=== PATIENT | female | born 1990 | race Caucasian/White ===

== ENCOUNTER 2018-02-19 06:45 | Day surgery (SDC) | payer BC ==
[~2018-02-19 06:45] MED LIST: Lactated Ringers 1,000 ML IV SCH; Sodium Chloride 0.9% 10 ML Syringe FLUSH PRN; Sodium Chloride 0.9% 2.5 ML Syringe FLUSH PRN
[2018-02-19] MEDS ORDERED: fentaNYL 100 MCG/2 ML SDV ONE (07:07)
[2018-02-19] MEDS ORDERED: Ketorolac 30 MG/ML SDV ONE (07:07)
[2018-02-19] MEDS ORDERED: Lidocaine 2% 5 ML SDV ONE (07:07)
[2018-02-19] MEDS ORDERED: Midazolam 1 MG/ML 2 ML SDV ONE (07:07)
[2018-02-19] MEDS ORDERED: Ondansetron 4 MG/2 ML SDV ONE (07:07)
[2018-02-19] MEDS ORDERED: Propofol 200 MG/20 ML SDV ONE (07:07)
[2018-02-19] MEDS ORDERED: Lidocaine 1% with EPINEPHrine 1:100,000 20 ML MDV ONE (07:26)
--- NOTE | 2018-02-19 07:31 | PCM.PREANE ---
Preanesthetic Assessment - Anesthesia/Transfusion/Family Hx Anesthesia History: Prior Anesthesia Without Reaction Family History of Anesthesia Reaction: No Transfusion History: No Prior Transfusion(s) Intubation History: Unknown - Review of Systems General: No Symptoms Pulmonary: No Symptoms Cardiovascular: No Symptoms Gastrointestinal: No Symptoms Neurological: No Symptoms Other: Reports: None - Physical Assessment NPO Status Date: 02/18/18 NPO Status Time: 21:00 O2 Sat by Pulse Oximetry: 97 Respiratory Rate: 16 Vital Signs: Last Vital Signs Temp 97.5 F 02/19/18 07:00 Pulse 72 02/19/18 07:00 Resp 16 02/19/18 07:00 BP 128/73 02/19/18 07:00 Pulse Ox 97 02/19/18 07:00 Height: 5 ft 2.5 in Weight: 162 lb ASA Class: 1 Mental Status: Alert & Oriented x3 Airway Class: Mallampati = 2 Dentition: Reports: Normal Dentition Thyro-Mental Finger Breadths: 3 Mouth Opening Finger Breadths: 3 ROM/Head Extension: Full Lungs: Clear to Auscultation, Normal Respiratory Effort Cardiovascular: Regular Rate, Regular Rhythm - Lab Values: Laboratory Last Values WBC 11.65 K/uL (4.0-11.0) H 02/19/18 07:10 RBC 4.48 M/uL (4.30-5.90) 02/19/18 07:10 Hgb 14.1 g/dL (12.0-16.0) 02/19/18 07:10 Hct 40.2 % (36.0-46.0) 02/19/18 07:10 MCV 89.7 fL (80.0-98.0) 02/19/18 07:10 MCH 31.5 pg (27.0-32.0) 02/19/18 07:10 MCHC 35.1 g/dL (31.0-37.0) 02/19/18 07:10 RDW Std Deviation 42.2 fl (28.0-62.0) 02/19/18 07:10 RDW Coeff of Abdelrahman 13 % (11.0-15.0) 02/19/18 07:10 Plt Count 296 K/uL (150-400) 02/19/18 07:10 MPV 9.70 fL (7.40-12.00) 02/19/18 07:10 Nucleated RBC % 0.0 /100WBC 02/19/18 07:10 Nucleated RBCs # 0 K/uL 02/19/18 07:10 - Allergies Allergies/Adverse Reactions: Allergies Allergy/AdvReac Type Severity Reaction Status Date / Time No Known Allergies Allergy Verified 02/13/18 13:46 - Blood Blood Available: No Product(s) Available: None - Anesthesia Plan Free Text/Narrative:: MAC - Acknowledgements Anesthesia Type Planned: MAC Pt an Appropriate Candidate for the Planned Anesthesia: Yes Alternatives and Risks of Anesthesia Discussed w Pt/Guardian: Yes Pt/Guardian Understands and Agrees with Anesthesia Plan: Yes PreAnesthesia Questionnaire HEENT History: Reports: None Gastrointestinal History: Reports: Other (See Below) Other Gastrointestinal History: occasional heartburn, treats with tums - no problems this AM Genitourinary History: Reports: None 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 , 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 - Infectious Disease History 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) - Past Surgical History Head Surgeries/Procedures: Reports: None HEENT Surgical History: Reports: Oral Surgery, Tonsillectomy Other HEENT Surgeries/Procedures: wisdom teeth extraction, dental implant Female Surgical History: Reports: D&C Other Female Surgeries/Procedures: laparoscopy with left salpingectomy for ectopic , D&C for missed AB - SUBSTANCE USE Smoking Status *Q: Former Smoker Tobacco Use Within Last Twelve Months: Cigarettes Recreational Drug Use History: No - HOME MEDS Home Medications: Home Meds Folic Acid 0.8 mg PO DAILY 02/13/18 [History] L.acidoph,Paracasei, B.lactis [Probiotic] 1 tab PO DAILY 02/13/18 [History] valACYclovir HCl [Valtrex] 500 mg PO DAILY 02/13/18 [History] - CURRENT (IN HOUSE) MEDS Current Meds: Current Medications Lactated Ringer's (Ringers, Lactated) 1,000 mls @ 125 mls/hr IV ASDIRECTED NANCY Last Admin: 02/19/18 07:10 Dose: 125 mls/hr Sodium Chloride (Saline Flush) 10 ml FLUSH ASDIRECTED PRN PRN Reason: Keep Vein Open Sodium Chloride (Saline Flush) 2.5 ml FLUSH ASDIRECTED PRN PRN Reason: Keep Vein Open Discontinued Medications Fentanyl (Sublimaze) Confirm Administered Dose 100 mcg .ROUTE .STK-MED ONE Stop: 02/19/18 07:08 Ketorolac Tromethamine (Toradol) Confirm Administered Dose 30 mg .ROUTE .STK- MED ONE Stop: 02/19/18 07:08 Lidocaine (Xylocaine-Mpf 2%) Confirm Administered Dose 5 ml .ROUTE .STK-MED ONE Stop: 02/19/18 07:08 Midazolam HCl (Versed 1 Mg/Ml) Confirm Administered Dose 2 mg .ROUTE .STK-MED ONE Stop: 02/19/18 07:08 Ondansetron HCl (Zofran) Confirm Administered Dose 4 mg .ROUTE .STK-MED ONE Stop: 02/19/18 07:08 Propofol (Diprivan 20 Ml) Confirm Administered Dose 400 mg .ROUTE .STK-MED ONE Stop: 02/19/18 07:08
[2018-02-19] MEDS ORDERED: fentaNYL 100 MCG/2 ML SDV IVPUSH PRN (07:36)
--- NOTE | 2018-02-19 07:44 | PCM.SN ---
- Free Text/Narrative Note: reviewed, pt examined and interviewed. agree with anesthetic plan
--- NOTE | 2018-02-19 08:25 | PCM.OPNOTE ---
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
--- NOTE | 2018-02-19 08:35 | PCM.POSTAN ---
POST ANESTHESIA ASSESSMENT - MENTAL STATUS Mental Status: Alert, Oriented - RESPIRATORY Respiratory Status: Respiratory Rate WNL, Airway Patent, O2 Saturation Stable - CARDIOVASCULAR CV Status: Pulse Rate WNL, Blood Pressure Stable - GASTROINTESTINAL GI Status: No Symptoms - POST OP HYDRATION Hydration Status: Adequate & Stable
--- NOTE | 2018-02-19 08:35 | PCM48HPAN ---
Post Anesthesia Note - EVALUATION WITHIN 48HRS OF ANESTHETIC Vital Signs in Normal Range: Yes Patient Participated in Evaluation: Yes Respiratory Function Stable: Yes Airway Patent: Yes Cardiovascular Function Stable: Yes Hydration Status Stable: Yes Pain Control Satisfactory: Yes Nausea and Vomiting Control Satisfactory: Yes Mental Status Recovered: Yes Resp Rate: 16
--- NOTE | 2018-02-19 09:24 | OR ---
SURGEON: Dee Dee Parra M.D. DATE OF PROCEDURE: 02/19/2018 PREOPERATIVE DIAGNOSIS: Cervical intraepithelial neoplasia 2. POSTOPERATIVE DIAGNOSIS: Cervical intraepithelial neoplasia 2. PROCEDURE: Loop electrosurgical excision procedure of the cervix. ANESTHESIA: Moderate sedation and local. ESTIMATED BLOOD LOSS: Less than 10 mL. FLUIDS: 700 mL crystalloid. COMPLICATIONS: None known. FINDINGS: HAIDER 2 or moderate dysplasia of the cervix. DISPOSITION: The patient to PACU, stable. SPECIMENS: Pathology. PROCEDURE DETAILS: Radha is a 27-year-old, nulligravida patient, who has HAIDER 2 on biopsy of the cervix and endocervix. After thoughtful discussion with her, she has opted to proceed with treatment now and will prolong the conception of for at least the next 6 months. Risks of the procedure have been discussed. Proper consent is obtained. The patient was taken to the examining room where she underwent moderate sedation, was placed in modified dorsal lithotomy position and was prepped and draped in the usual manner. A time-out was performed. Coated speculum was introduced in the vagina followed by sidewall retractors. Lugol's solution was gently placed. The cervix was now prepped with 1% lidocaine with epinephrine, 5 o'clock, 7 o'clock, 12 o'clock, 3 and 9 o'clock positions. Please see nurse's notes for total amount dispensed during the procedure. As the patient has a nulliparous cervix, able to utilize a 20 x 8 mm loop and did a single pass shallow loop. Beginning at the 9 o'clock position, I was able to excise the cervix from the 9 o'clock to the 3 o'clock position. Specimen was marked at 12 o'clock position, to be sent to pathology for analysis. A 5 mm endocervical hat was now performed followed by endocervical curettings. The endocervical canal was gently dilated to help prevent again stenosis. Base of the wound bed was cauterized followed by Monsel's placement. Hemostasis was evident. The patient has tolerated the procedure well. All instruments were removed from the vagina. Instrument, needle counts correct x2. The patient will go to PACU in stable condition. Specimens to pathology. JOEL / HANDY /[id number]
== END 2018-02-19 09:15 | disposition home or self-care (01) ==
LOC: MW.SDS 06:45
PROVIDERS: ATTEND Obstetrics & Gynecology
DX: N87.1 Moderate cervical dysplasia (principal); Z79.899 Other long term (current) drug therapy; Z87.891 Personal history of nicotine dependence
CPT/HCPCS: 36415; 57522; 84703; 85027; J1885; J2250; J2405; J3010; J7120; 88305; 88307; J2704

== ENCOUNTER 2018-05-13 21:55 | Emergency (ER) | payer BC ==
--- NOTE | 2018-05-13 22:20 | EDM.PDOC ---
ED HPI GENERAL MEDICAL PROBLEM - General Chief Complaint: Lower Extremity Injury/Pain Stated Complaint: PAIN IN THE LF HEEL Time Seen by Provider: 05/13/18 21:59 Source of Information: Reports: Patient History Limitations: Reports: No Limitations - History of Present Illness INITIAL COMMENTS - FREE TEXT/NARRATIVE: HISTORY AND PHYSICAL: History of present illness: 28-year-old female presenting emergency department with chief complaint of left heel pain after stepping on a splinter Sunday. Patient states that she had a wood/deck splinter into her left heel approximately 3 days ago. She has had increasing pain and tenderness in that general region. He showed me a picture of the splinter and is approximately 1 cm in length by 0.1 cm in width. She denies any associated fevers, chills, nausea, vomiting, or other signs of systemic infection. She is unsure when her last tetanus shot was. There is a small 0.2 circular puncture wound to the left heel with surrounding erythema and swelling. Patient is tender to palpation. Neurovascular intact, no decrease in range of motion or strength. Review of systems: As per history of present illness and below otherwise all systems reviewed and negative. Past medical history: As per history of present illness and as reviewed below otherwise noncontributory. Surgical history: As per history of present illness and as reviewed below otherwise noncontributory. Social history: No reported history of drug or alcohol abuse. Family history: As per history of present illness and as reviewed below otherwise noncontributory. Physical exam: HEENT: Atraumatic, normocephalic, pupils reactive, negative for conjunctival pallor or scleral icterus, mucous membranes moist, throat clear, neck supple, nontender, trachea midline. Lungs: Clear to auscultation, breath sounds equal bilaterally, chest nontender. Heart: S1S2, regular, negative for clicks, rubs, or JVD. Abdomen: Soft, nondistended, nontender. Negative for masses or hepatosplenomegaly. Negative for costovertebral tenderness. Pelvis: Stable nontender. Genitourinary: Deferred. Rectal: Deferred. Extremities: Atraumatic, negative for cords or calf pain. Neurovascular unremarkable. Neuro: Awake, alert, oriented. Cranial nerves II through XII unremarkable. Cerebellum unremarkable. Motor and sensory unremarkable throughout. Exam nonfocal. Diagnostics: Left foot x-ray Therapeutics: Bactrim DS 10 days twice a day Impression: Cellulitis left heel Plan: X-ray revealed no translucent materials left in the area of inflammation. On visual examination I'm unable to identify any significant foreign body in the wound. There is surrounding erythema and swelling most likely secondary to a superficial cellulitis. Give the patient a prescription for Bactrim DS 10 days twice a day and instructed to follow-up with primary care provider. All information for a primary care provider was provided to the patient. She was told to return in months department if she had any new or worsening symptoms. 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 - Infectious Disease History 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 ED EXAM, GENERAL - Physical Exam Exam: See Below Course - Vital Signs Last Recorded V/S: Last Vital Signs Temp 98.8 F 05/13/18 22:20 Pulse 89 05/13/18 22:20 Resp 18 05/13/18 22:20 BP 143/89 H 05/13/18 22:20 Pulse Ox 99 05/13/18 22:20 - Orders/Labs/Meds Orders: Active Orders 24 hr Category Date Time Status Vaccines to be Administered [RC] PER UNIT ROUTINE Care 05/13/18 22:32 Active Vaccines to be Administered [RC] PER UNIT ROUTINE Care 05/13/18 22:38 Active Foot 2V Lt [CR] Stat Exams 05/13/18 22:33 Taken Meds: Medications Discontinued Medications Generic Name Dose Route Start Last Admin Trade Name Jaquelin PRN Reason Stop Dose Admin Diphtheria/Tetanus/Acell Pertussis 0.5 ml 05/13/18 22:38 05/13/18 22:40 Adacel IM 05/13/18 22:39 0.5 ml .ONCE ONE Administration Tetanus/Diphtheria Toxoids 0.5 ml 05/13/18 22:31 05/13/18 22:41 Tenivac IM 05/13/18 22:32 Not Given .ONCE ONE Departure - Departure Time of Disposition: 23:23 Disposition: Home, Self-Care 01 Condition: Good Clinical Impression: Cellulitis Qualifiers: Site of cellulitis: extremity Site of cellulitis of extremity: lower extremity Laterality: left Qualified Code(s): L03.116 - Cellulitis of left lower limb - Discharge Information Referrals: Silvino Patel MD [Primary Care Provider] - Forms: ED Department Discharge Additional Instructions: My general discharge The following information is given to patients seen in the emergency department who are being discharged to home. This information is to outline your options for follow-up care. We provide all patients seen in our emergency department with a follow-up referral. The need for follow-up, as well as the timing and circumstances, are variable depending upon the specifics of your emergency department visit. If you don't have a primary care physician on staff, we will provide you with a referral. We always advise you to contact your personal physician following an emergency department visit to inform them of the circumstance of the visit and for follow-up with them and/or the need for any referrals to a consulting specialist. The emergency department will also refer you to a specialist when appropriate. This referral assures that you have the opportunity for follow-up care with a specialist. All of these measure are taken in an effort to provide you with optimal care, which includes your follow-up. Under all circumstances we always encourage you to contact your private physician who remains a resource for coordinating your care. When calling for follow-up care, please make the office aware that this follow-up is from your recent emergency room visit. If for any reason you are refused follow-up, please contact the [facility] Emergency Department at and asked to speak to the emergency department charge nurse. [facility] [address] [place] [id number] Please call number above and scheduling a follow-up appointment with her primary care provider. Take antibiotics as prescribed. May take Tylenol and ibuprofen for pain and inflammation. Return emergency department if any new or worsening symptoms. - My Orders Last 24 Hours: My Active Orders 05/13/18 22:32 Vaccines to be Administered [RC] PER UNIT ROUTINE 05/13/18 22:33 Foot 2V Lt [CR] Stat 05/13/18 22:38 Vaccines to be Administered [RC] PER UNIT ROUTINE - Assessment/Plan Last 24 Hours: My Active Orders 05/13/18 22:32 Vaccines to be Administered [RC] PER UNIT ROUTINE 05/13/18 22:33 Foot 2V Lt [CR] Stat 05/13/18 22:38 Vaccines to be Administered [RC] PER UNIT ROUTINE
[2018-05-13] MEDS ORDERED: Diphtheria/Tetanus Toxoids,Adult (Td) 0.5 ML Syringe IM ONE (22:31)
[2018-05-13] MEDS ORDERED: Diphtheria,Pertussis(Acell),Tetanus Vaccine 0.5 ML Syringe IM ONE (22:38)
--- NOTE | 2018-05-14 09:24 | CR ---
EXAM DATE: 05/13/18 PATIENT'S AGE: 28 Patient: MEMO CRAIG Facility: [place], [place] Site . Site : 1990 Study: XRay Extremity Left foot [id number]/2/2018 10:54:47 PM Ordering Physician: Ed Trinh Final Report: Indication: Possible wooden splinter in heel Technique: Two views left foot Comparison: None Findings: Bones: Alignment is normal. No fractures or bone lesions. Joint spaces: Unremarkable. Soft tissues: Unremarkable. Impression: No abnormal lucent or radiopaque foreign body identified. Dictated by Ivonne Galvan MD @ May 13 2018 11:00PM (Electronic Signature) Report Signed by Proxy. ADRI
== END 2018-05-13 23:35 | disposition home or self-care (01) ==
LOC: MW.ED 21:55
DX: L03.116 Cellulitis of left lower limb (principal); F17.210 Nicotine dependence, cigarettes, uncomplicated; Z23 Encounter for immunization
CPT/HCPCS: 73620-26-LT; 73620-LT; 90471; 90715; 99282; 99283-25

== ENCOUNTER 2019-06-29 09:29 | Emergency (ER) | payer BC ==
[2019-06-29] MEDS ORDERED: Levofloxacin 500 MG Tab PO ONE (09:59)
--- NOTE | 2019-06-29 10:00 | EDM.PDOC ---
ED HPI GENERAL MEDICAL PROBLEM - General Chief Complaint: Genitourinary Problem Stated Complaint: BLOOD IN URINE Time Seen by Provider: 06/29/19 09:59 Source of Information: Reports: Patient - History of Present Illness INITIAL COMMENTS - FREE TEXT/NARRATIVE: HISTORY AND PHYSICAL: History of present illness: []Frequency and dysuria for 1 week of fever nausea vomiting chills sweats Review of systems: As per history of present illness and below otherwise all systems reviewed and negative. Past medical history: As per history of present illness and as reviewed below otherwise noncontributory. Surgical history: As per history of present illness and as reviewed below otherwise noncontributory. Social history: No reported history of drug or alcohol abuse. Family history: As per history of present illness and as reviewed below otherwise noncontributory. Physical exam: HEENT: Atraumatic, normocephalic, pupils reactive, negative for conjunctival pallor or scleral icterus, mucous membranes moist, throat clear, neck supple, nontender, trachea midline. Lungs: Clear to auscultation, breath sounds equal bilaterally, chest nontender. Heart: S1S2, regular, negative for clicks, rubs, or JVD. Abdomen: Soft, nondistended, nontender. Negative for masses or hepatosplenomegaly. Negative for costovertebral tenderness. Pelvis: Stable nontender. Genitourinary: Deferred. Rectal: Deferred. Extremities: Atraumatic, negative for cords or calf pain. Neurovascular unremarkable. Neuro: Awake, alert, oriented. Cranial nerves II through XII unremarkable. Cerebellum unremarkable. Motor and sensory unremarkable throughout. Exam nonfocal. Diagnostics: [HCG ] Therapeutics: [Levaquin Diflucan Impression: [UTI] Definitive disposition and diagnosis as appropriate pending reevaluation and review of above. Pelvic Pain Score (Numeric/FACES): 8 - Related Data Allergies Allergy/AdvReac Type Severity Reaction Status Date / Time No Known Allergies Allergy Verified 06/29/19 09:41 Home Meds: Home Meds . 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 - Infectious Disease History Infectious Disease History: Reports: Chicken Pox - Past Surgical History Head Surgeries/Procedures: Reports: None HEENT Surgical History: Reports: Oral Surgery, Tonsillectomy Other HEENT Surgeries/Procedures: wisdom teeth extraction, dental implant Female Surgical History: Reports: D&C, LEEP Other Female Surgeries/Procedures: laparoscopy with left salpingectomy for ectopic , D&C for missed AB Social & Family History - Family History Family Medical History: Noncontributory - Tobacco Use Smoking Status *Q: Current Every Day Smoker Years of Tobacco use: 7 Packs/Tins Daily: 0.2 - Recreational Drug Use Recreational Drug Use: No ED ROS GENERAL - Review of Systems Review Of Systems: See Below ED EXAM, GENERAL - Physical Exam Exam: See Below Course - Vital Signs Last Recorded V/S: Last Vital Signs Temp 97.1 F 06/29/19 09:38 Pulse 71 06/29/19 09:38 Resp 18 06/29/19 09:38 BP 121/75 06/29/19 09:38 Pulse Ox 100 06/29/19 09:38 - Orders/Labs/Meds Orders: Active Orders 24 hr Category Date Time Status CULTURE URINE [RM] Stat Lab 06/29/19 09:35 Received levoFLOXacin [Levaquin] Med 06/29/19 09:59 Once 500 mg PO ONETIME ONE Labs: Laboratory Tests 06/29/19 06/29/19 Range/Units 09:35 09:35 Urine Color YELLOW Urine Appearance CLOUDY Urine pH 6.5 (5.0-8.0) Ur Specific Dunbar 1.020 (1.001-1.035) Urine Protein 30 H (NEGATIVE) mg/dL Urine Glucose (UA) NEGATIVE (NEGATIVE) mg/dL Urine Ketones NEGATIVE (NEGATIVE) mg/dL Urine Occult Blood LARGE H (NEGATIVE) Urine Nitrite NEGATIVE (NEGATIVE) Urine Bilirubin NEGATIVE (NEGATIVE) Urine Urobilinogen 0.2 (<2.0) EU/dL Ur Leukocyte Esterase LARGE H (NEGATIVE) Urine RBC 40-50 (0-2/HPF) Urine WBC 50-75 (0-5/HPF) Ur Epithelial Cells FEW (NONE-FEW) Urine Bacteria 1+ H (NEGATIVE) Urine HCG, Qual NEGATIVE (NEGATIVE) Departure - Departure Time of Disposition: 10:00 Disposition: Home, Self-Care 01 Condition: Good Clinical Impression: UTI, Urinary tract infectious disease - Discharge Information Referrals: PCP,Kaye [Primary Care Provider] - Additional Instructions: The following information is given to patients seen in the emergency department who are being discharged to home. This information is to outline your options for follow-up care. We provide all patients seen in our emergency department with a follow-up referral. The need for follow-up, as well as the timing and circumstances, are variable depending upon the specifics of your emergency department visit. If you don't have a primary care physician on staff, we will provide you with a referral. We always advise you to contact your personal physician following an emergency department visit to inform them of the circumstance of the visit and for follow-up with them and/or the need for any referrals to a consulting specialist. The emergency department will also refer you to a specialist when appropriate. This referral assures that you have the opportunity for follow-up care with a specialist. All of these measure are taken in an effort to provide you with optimal care, which includes your follow-up. Under all circumstances we always encourage you to contact your private physician who remains a resource for coordinating your care. When calling for follow-up care, please make the office aware that this follow-up is from your recent emergency room visit. If for any reason you are refused follow-up, please contact the [facility] emergency department at and asked to speak to the emergency department charge nurse. - My Orders Last 24 Hours: My Active Orders 06/29/19 09:35 CULTURE URINE [RM] Stat 06/29/19 09:59 levoFLOXacin [Levaquin] 500 mg PO ONETIME ONE - Assessment/Plan Last 24 Hours: My Active Orders 06/29/19 09:35 CULTURE URINE [RM] Stat 06/29/19 09:59 levoFLOXacin [Levaquin] 500 mg PO ONETIME ONE
== END 2019-06-29 10:11 | disposition home or self-care (01) ==
LOC: MW.ED 09:29
DX: N39.0 Urinary tract infection, site not specified (principal); F17.210 Nicotine dependence, cigarettes, uncomplicated; Z98.890 Other specified postprocedural states
CPT/HCPCS: 81001; 81025; 87086; 99283; A9270; 87088; 87186